=== PATIENT | male | born 1940 | race Caucasian/White ===

== ENCOUNTER 2024-05-06 06:01 | Outpatient (REF) | payer MEDICARE, SELFPAY ==
[2024-05-06 06:08] LABS: MANUAL DIFF FLAG NO
[2024-05-06 06:41] LABS: Basophils Percent Auto 0.5 % (0-2); Eosinophils Absolute Auto 0.2 X10*3/uL (0.0-0.4); Eosinophils Percent Auto 4.7 % (0-4); Hematocrit 29.7 % (42.0-52.0); Hemoglobin 10.1 g/dl (14.0-18.0); Imm Gran Abs Auto 0.01 X10*3/uL (0.00-0.03); Imm Gran Pct Auto 0.2 % (0.0-0.4); Lymphocytes Absolute Auto 1.2 X10*3/uL (1.2-4.9); Lymphocytes Percent Auto 29.4 % (20-40); Mean Corpuscular Hemoglobin 32.3 pg (27.0-33.0); Mean Corpuscular Volume 94.9 fL (80.0-98.0); Mean Platelet Volume 10.1 fL (9.4-12.4); Monocytes Absolute Auto 0.4 X10*3/uL (0.1-1.2); Monocytes Percent Auto 9.2 % (2-11); Neutrophils Absolute Auto 2.4 x10*3/uL (2.0-8.3); Platelet Count 138 X10*3/uL (160-400); Red Blood Count 3.13 X10*6/uL (4.60-5.80); Red Cell Distribution Width 13.1 % (11.0-16.0); White Blood Count 4.2 X10*3/uL (4.8-10.8)
[2024-05-06 07:00] LABS: Alanine Aminotransferase 15 U/L (0-40); Albumin Level 3.7 g/dL (3.5-5.0); Alkaline Phosphatase 68 U/L (39-117); Anion Gap 11 (12-20); Aspartate Amino Transferase 25 U/L (5-37); Bilirubin Total 0.4 mg/dL (0.0-1.0); Blood Urea Nitrogen 14 mg/dL (9-16); Calcium 9.2 mg/dL (8.4-10.2); Carbon Dioxide 24 mmol/L (22-29); Chloride 107 mmol/L (96-108); Estimated Glomerular Filt Rate > 60; Glucose Fasting 101 mg/dL (60-99); Sodium 138 mmol/L (135-145); Total Protein 6.3 g/dL (6.5-8.0)
[2024-05-06 07:18] LABS: Prostate Specific Antigen 0.24 ng/mL (<0.05-4.0)
[2024-05-06 07:21] LABS: Thyroid Stimulating Hormone 1.25 uIU/mL (0.32-4.0); Vitamin D 25-OH Total 50.8 ng/mL (>30)
[2024-05-09 16:17] LABS: TS Negative Control Passed; TS Panel A 0; TS Panel B 0; TS Positive Control Passed; TSpotTB Negative (Negative)
== END 2024-05-06 06:02 | disposition home or self-care (01) ==
LOC: HO.HSH2N 06:01
PROVIDERS: Visit Provider Internal Medicine Interventional Cardiology
DX: I10 Essential (primary) hypertension (principal); C61 Malignant neoplasm of prostate; F03.90 Unspecified dementia, unspecified severity, without behavioral disturbance, psychotic disturbance, mood disturbance, and anxiety; E55.9 Vitamin D deficiency, unspecified; Z12.5 Encounter for screening for malignant neoplasm of prostate
CPT/HCPCS: 36415; 80053; 82306; 84153; 84443; 85025; 86481

== ENCOUNTER 2024-05-07 06:39 | Outpatient (REF) | payer MEDICARE, SELFPAY ==
[2024-05-07 06:57] LABS: Immature Retic Fraction 5.1 % (2.3-13.4); Reticulocytes Absolute 0.033 X10*6/uL (0.026-0.095)
[2024-05-07 07:15] LABS: Iron 56 mcg/dL (45-160); Percent Iron Saturation 24 % (15-50); Total Iron Binding Capacity 234 mcg/dL (228-428); Unsaturated Iron Binding 178 ug/dL
[2024-05-07 07:58] LABS: Folate 12.4 ng/mL (> or = 4.0); Vitamin B12 300 pg/mL (200-900)
== END 2024-05-07 06:40 | disposition home or self-care (01) ==
LOC: HO.HSH2N 06:39
PROVIDERS: Visit Provider Internal Medicine Interventional Cardiology
DX: D64.9 Anemia, unspecified (principal)
CPT/HCPCS: 36415; 82607; 82746; 83540; 85045

== ENCOUNTER 2024-05-12 15:17 | Outpatient (REF) | payer MEDICARE, SELFPAY ==
[2024-05-12 15:25] LABS: OBS Int Ctl Valid YES; OBS1 NEGATIVE (NEGATIVE)
== END 2024-05-12 15:18 | disposition home or self-care (01) ==
LOC: HO.HSH2N 15:17
PROVIDERS: Visit Provider Internal Medicine Interventional Cardiology
DX: D64.9 Anemia, unspecified (principal)
CPT/HCPCS: 82272

== ENCOUNTER 2024-05-15 14:17 | Outpatient (REF) | payer MEDICARE, SELFPAY ==
[2024-05-15 14:27] LABS: OBS Int Ctl Valid YES; OBS1 NEGATIVE (NEGATIVE)
== END 2024-05-15 14:18 | disposition home or self-care (01) ==
LOC: HO.HSH2N 14:17
PROVIDERS: Visit Provider Internal Medicine Interventional Cardiology
DX: D64.9 Anemia, unspecified (principal)
CPT/HCPCS: 82272

== ENCOUNTER 2024-06-10 08:20 | Outpatient (REF) | payer MEDICARE, SELFPAY ==
[2024-06-10 08:27] LABS: OBS Int Ctl Valid YES; OBS1 NEGATIVE (NEGATIVE)
--- OUTSIDE RECORDS SUMMARY | 2024-06-10 08:46 | XMS_ITS | Clinical Summary ---
Author Organization [employer] Address [address] [facility] 7 [place] [address] Care Team Providers Care Animal Laboratory Technician Name Role Phone Unavailable Primary Care Provider Unavailabl e Social History Tobacco Use Types Packs/Day Years Used Date Smoking Tobacco: Never Assessed Sex and Gender Information Value Date Recorded Sex Assigned at Male 05/18/2024 11:39 AM EST Legal Sex Male 11:38 AM EST Gender Identity Male 05/18/2024 11:39 AM EST Sexual Orientation Straight 05/18/2024 11 :39 AM EST Plan of Treatment Upcoming Encounters Date Type Department Care Team ([facility] st Contact Info) Description 07/07/2024 11:00 AM EDT Office Visit [facility] [address] [place] [address] Caio Mayen, DMD [address] [place] [address] Health Maintenance Due Date Last Done Comments Depression Screening 1938 Lipid Panel 1938 SDOH Screening 1938 Alcohol/Substance Use Screening 1950 Tobacco Screening 1950 DTaP/Tdap/Td Vaccines (1 - Tdap) 1957 Pneumococcal Vaccine: 50+ Ye ars (1 of 1 - PCV) 1988 Zoster Vaccines (1 of 2) 1988 RSV Patients and Pa tients Aged 60 years or older (1 - 1-dose 75+ series) 2013 COVID-19 Vaccine ( - 2023-2 5 season) 2023 Influenza Vaccine (#1) 2023 HIB Vaccines Aged Out No longer eligi ble based on patient's age to complete this topic HPV Vaccines Aged Out No longer eligi ble based on patient's age to complete this topic Hepatitis A Vaccines Aged Out No long er eligible based on patient's age to complete this topic Hepatitis B Vaccines Aged Out No long er eligible based on patient's age to complete this topic IPV Vaccines Aged Out No longer eligi ble based on patient's age to complete this topic Meningococcal Vaccine Aged Out No aj elliott eligible based on patient's age to complete this topic RSV under 20 months Aged Out No longe r eligible based on patient's age to complete this topic Rotavirus Vaccines Aged Out No longer eligible based on patient's age to complete this topic
== END 2024-06-10 08:21 | disposition home or self-care (01) ==
LOC: HO.HSH2N 08:20
PROVIDERS: Visit Provider Internal Medicine Interventional Cardiology
DX: D64.9 Anemia, unspecified (principal)
CPT/HCPCS: 82272

== ENCOUNTER 2024-07-12 07:42 | Outpatient (REF) | payer MEDICARE, SELFPAY ==
[2024-07-12 07:45] LABS: MANUAL DIFF FLAG NO
--- OUTSIDE RECORDS SUMMARY | 2024-07-12 07:46 | XMS_ITS | Clinical Summary ---
Author Organization [employer] Address [address] [place] [address] [place] [address] Care Team Providers Care Honey Liquefier Name Role Phone Unavailable Primary Care Provider Unavailabl e Allergies No known active allergies Medications traZODone (Desyrel) 50 MG tablet 50 mg. 04/02/2024 Active pantoprazole (ProtoNix) 40 MG EC tablet 40 mg. 04/02/2024 Active erythromycin (Romycin) 5 MG/GM ophthalmic ointment 02/09/2024 Active escitalopram (Lexapro) 20 MG tablet 20 mg. 04/02/2024 Active amLODIPine (Norvasc) 5 MG tablet 5 mg. 04/02/2024 Active tamsulosin (Flomax) 0.4 MG 24 hr capsule 0.4 mg. 04/02/2024 Activ e Eliquis 5 MG tablet 5 mg. 04/02/2024 Active aspirin 81 MG EC tablet Take 81 mg by mouth Once per day. Active senna-docusate sodium (Senokot-S) 8.6-50 MG tablet Take 1 tablet by mouth Once per day. Active lactulose (Chronulac) 10 GM/15ML solution Take 20 g by mouth 3 times daily. Active Active Problems No known active problems Encounters Date Type Department Care Team Description 07/07/2024 8:00 AM EDT Office Visit [facility] [address] [place] [address] Caio Mayen DMD from Last 3 Months Social History Tobacco Use Types Packs/Day Years Used Date Smoking Tobacco: Unknown Tobacco Cessation:Counseling Given: Not Answered Alcohol Use Standard Drinks/Week Comments Defer 0 (1 standard drink = 0.6 oz pur e alcohol) Sex and Gender Information Value Date Recorded Sex Assigned at Male 05/18/2024 11:39 AM EST Legal Sex Male 11:38 AM EST Gender Identity Male 05/18/2024 11:39 AM EST Sexual Orientation Straight 05/18/2024 11 :39 AM EST Plan of Treatment Upcoming Encounters Date Type Department Care Team (Late st Contact Info) Description 08/18/2024 10:00 AM EDT Office Visit [facility] [address] [place], [place] [id number] Shavon Harley [address] [place] [address] Health Maintenance Due Date Last Done Comments Dental Prophylaxis 1938 Depression Screening 1938 Lipid Panel 1938 SDOH Screening 1938 Alcohol/Substance Use Screening 1950 DTaP/Tdap/Td Vaccines (1 - Tdap) 1957 Pneumococcal Vaccine: 50+ Ye ars (1 of 1 - PCV) 1988 Zoster Vaccines (1 of 2) 1988 RSV Patients and Pa tients Aged 60 years or older (1 - 1-dose 75+ series) 2013 COVID-19 Vaccine ( - 2023-2 5 season) 2023 Influenza Vaccine (#1) 2023 Dental Oral Exam 01/07/2025 07/07/2024 Tobacco Screening 07/07/2025 07/07/2024 Dental X-Ray: Bitewings 07/08/2025 07/07/2024 Dental X-Ray: Full Mouth 07/09/2027 07/07/2024 HIB Vaccines Aged Out No longer eligi [...] on patient's age to complete this topic Procedures Procedure Name Priority Date/Time Associated Diagnosis Comments INTRAORAL - COMPLETE SERIES OF RADIOGRAPHIC IMAGES Routine 07/07/2024 8:00 AM EDT COMPREHENSIVE ORAL EVALUATION - NEW OR ESTABLISHED PATIENT Routine 07/07/2024 8:00 AM EDT 29 B COMPOSITE FILLING Routine 12:00 AM EDT from Last 3 Months
--- OUTSIDE RECORDS SUMMARY | 2024-07-12 07:46 | XMS_ITS | Encounter Summary ---
Author Organization [employer] Address [address] [facility] 7 [place] [address] Care Team Providers Care Animal Geneticist Name Role Phone Unavailable Primary Care Provider Unavailabl e Reason for Visit * Reason Comments Dental Exam X-ray and dental exa m Encounter Details Date Type Department Care Team (Late st Contact Info) Description 07/07/2024 8:00 AM EDT Office Visit [facility] [address] [place] [address] Caio Mayen DMD [address] [place] [address] Social History Tobacco Use Types Packs/Day Years [...] Orientation Straight 05/18/2024 11 :39 AM EST documented as of this encounter Progress Notes * Caio Mayen DMD - 07/07/2024 8:00 AM EDT C/C: dental exam I.O.E: gen periodontal bone loss, gen heavy plaque and calculus accumulation, erythematous and edematous gingiva E.O.E: wnl OCS: wnl Head and neck: wnl Radiographic: gen moderate to advanced periodontal bone loss, gen calculus accumulation, severe root carious tooth#18 Dx: gen 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 Medical clearance form is being given to pt's PCP prior to exo Magnus documented in this encounter Plan of Treatment Upcoming Encounters Date Type Department Care Team (Late st Contact Info) Description 08/18/2024 10:00 AM EDT Office Visit [facility] [address] [place] [address] Shavon Harley [address] [facility] [place] [address] Scheduled Orders Name Type Priority Associated Diagnoses Orde r Schedule 18 18 EXTRACTION, ERUPTED TOOTH OR EXPOSED ROOT (ELEVATION/FORCEPS REMOVAL) Dental Routine [address] arting 07/07/2024 PROPHYLAXIS - ADULT Dental Routine 1 Occ urrences starting 07/07/2024 COMPREHENSIVE PERIODONTAL EVALUATION - NEW OR ESTABLISHED PATIENT Dental Routine 1 Occurrence s starting 07/07/2024 documented as of this encounter Procedures Procedure Name Priority Date/Time Associated Diagnosis Comments INTRAORAL - COMPLETE SERIES OF RADIOGRAPHIC IMAGES Routine 07/07/2024 8:00 AM EDT COMPREHENSIVE ORAL EVALUATION - NEW OR ESTABLISHED PATIENT Routine 07/07/2024 8:00 AM EDT 29 B COMPOSITE FILLING Routine 12:00 AM EDT documented in this encounter Visit Diagnoses Not on filedocumented in this encounter
[2024-07-12 07:55] LABS: Basophils Percent Auto 0.6 % (0-2); Eosinophils Absolute Auto 0.2 X10*3/uL (0.0-0.4); Eosinophils Percent Auto 4.6 % (0-4); Hematocrit 32.8 % (42.0-52.0); Imm Gran Abs Auto 0.01 X10*3/uL (0.00-0.03); Imm Gran Pct Auto 0.2 % (0.0-0.4); Lymphocytes Absolute Auto 1.5 X10*3/uL (1.2-4.9); Lymphocytes Percent Auto 31.4 % (20-40); Mean Corpuscular HGB Conc 33.5 g/dl (31.0-36.0); Mean Corpuscular Volume 95.3 fL (80.0-98.0); Mean Platelet Volume 9.9 fL (9.4-12.4); Monocytes Absolute Auto 0.5 X10*3/uL (0.1-1.2); Monocytes Percent Auto 10.5 % (2-11); Neutrophils Absolute Auto 2.5 x10*3/uL (2.0-8.3); Neutrophils Percent Auto 52.7 % (45-73); Platelet Count 177 X10*3/uL (160-400); Red Blood Count 3.44 X10*6/uL (4.60-5.80); Red Cell Distribution Width 12.6 % (11.0-16.0); White Blood Count 4.8 X10*3/uL (4.8-10.8)
== END 2024-07-12 07:43 | disposition home or self-care (01) ==
LOC: HO.HSH2N 07:42
PROVIDERS: Visit Provider Internal Medicine Interventional Cardiology
DX: D64.9 Anemia, unspecified (principal)
CPT/HCPCS: 36415; 85025

== ENCOUNTER 2024-11-04 06:23 | Outpatient (REF) | payer MEDICARE, SELFPAY ==
[2024-11-04 06:26] LABS: MANUAL DIFF FLAG NO
[2024-11-04 06:35] LABS: Hematocrit 34.1 % (42.0-52.0); Hemoglobin 12.2 g/dl (14.0-18.0); Imm Gran Abs Auto 0.01 X10*3/uL (0.00-0.03); Imm Gran Pct Auto 0.2 % (0.0-0.4); Lymphocytes Absolute Auto 1.5 X10*3/uL (1.2-4.9); Mean Corpuscular HGB Conc 35.8 g/dl (31.0-36.0); Mean Corpuscular Hemoglobin 32.8 pg (27.0-33.0); Mean Corpuscular Volume 91.7 fL (80.0-98.0); NRBC Abs Auto 0.000 X10*3/uL (0.0-0.012); NRBC Pct Auto 0.0 /100WBC (0.0-0.2); Platelet Count 159 X10*3/uL (160-400); Red Blood Count 3.72 X10*6/uL (4.60-5.80); White Blood Count 4.2 X10*3/uL (4.8-10.8)
[2024-11-04 07:00] LABS: Anion Gap 11 (12-20); Blood Urea Nitrogen 15 mg/dL (9-16); Calcium 8.8 mg/dL (8.4-10.2); Carbon Dioxide 26 mmol/L (22-29); Chloride 108 mmol/L (96-108); Estimated Glomerular Filt Rate > 60; Potassium 4.2 mmol/L (3.3-5.1); Sodium 141 mmol/L (135-145)
[2024-11-04 07:21] LABS: Prostate Specific Antigen 0.26 ng/mL (<0.05-4.0)
[2024-11-04 08:23] LABS: Appearance Urine Clear; Glucose Urine UA Negative (Negative); PH 7.0 (5.0-9.0); Specific Gravity - Urine 1.015 (1.005-1.025)
== END 2024-11-04 06:24 | disposition home or self-care (01) ==
LOC: HO.HSH2N 06:23
PROVIDERS: Visit Provider Internal Medicine Interventional Cardiology
DX: R41.82 Altered mental status, unspecified (principal); D64.9 Anemia, unspecified; Z85.46 Personal history of malignant neoplasm of prostate; Z12.5 Encounter for screening for malignant neoplasm of prostate
CPT/HCPCS: 36415; 80048; 81003; 84153; 85025

== ENCOUNTER 2024-11-22 07:07 | Outpatient (REF) | payer MEDICARE, SELFPAY ==
[2024-11-22 08:41] LABS: Ferritin 701 ng/mL (20-250)
== END 2024-11-22 07:08 | disposition home or self-care (01) ==
LOC: HO.HSH2N 07:07
PROVIDERS: Visit Provider Internal Medicine Interventional Cardiology
DX: D64.9 Anemia, unspecified (principal)
CPT/HCPCS: 36415; 82728

== ENCOUNTER 2024-12-20 14:45 | Outpatient (REF) | payer MEDICARE, SELFPAY ==
[2024-12-20 14:57] LABS: Appearance Urine Clear; Glucose Urine UA Negative (Negative); PH 6.5 (5.0-9.0); Specific Gravity - Urine 1.010 (1.005-1.025)
== END 2024-12-20 14:46 | disposition home or self-care (01) ==
LOC: HO.HSH2N 14:45
PROVIDERS: Visit Provider Internal Medicine Interventional Cardiology
DX: R41.82 Altered mental status, unspecified (principal)
CPT/HCPCS: 81003

== ENCOUNTER 2024-12-21 06:45 | Outpatient (REF) | payer MEDICARE, SELFPAY | END 2024-12-21 06:46 | disposition home or self-care (01) | LOC: HO.HSH2N 06:45 | PROVIDERS: Visit Provider Internal Medicine Interventional Cardiology | DX: R41.82 Altered mental status, unspecified (principal) | CPT/HCPCS: 36415; 80048; 81003; 85025 ==

== ENCOUNTER 2025-01-17 06:12 | Outpatient (REF) | payer MEDICARE, SELFPAY ==
--- OUTSIDE RECORDS SUMMARY | 2025-01-17 06:14 | XMS_ITS | Clinical Summary ---
Author Organization [employer] Address [address] [facility] 7 [place] [address] Care Team Providers Care Plastic Extrusion Operator Name Role Phone Unavailable Primary Care Provider [...] g by mouth 3 times daily. Active OLANZapine (ZyPREXA) 2.5 MG tablet at bedtime. Active cholecalciferol (Vitamin D-3) 25 MCG (1000 UT) capsule Take 25 mcg by mouth Once per day. Active polyethylene glycol, PEG, 3350 (Miralax) 17 g packet Take 17 g by mouth Once per day. Active Melatonin 3-10 MG tablet Take 3 mg by mouth at bedtime. Active Active Problems No known active problems Encounters Date Type Department Care Team Description 12/15/2024 9:45 AM EDT Office Visit [facility] [address] [place], [place] [phone] Kathy Duong Periapical abscess without sinus (Primary Dx); Dental calculus; Dental plaque from Last 3 Months Social History Tobacco [...] 11 :39 AM EST Plan of Treatment Health Maintenance Due Date Last Done Comments Depression Screening 1938 Lipid Panel 1938 SDOH Screening 1938 Alcohol/Substance Use Screening 1950 DTaP/Tdap/Td Vaccines (1 - Tdap) 1957 Pneumococcal Vaccine: 50+ Years (1 of 1 - PCV) 1988 Zoster Vaccines (1 of 2) 1988 RSV Patients and Patients Aged 60 years or older (1 - 1-dose 75+ series) 2013 COVID-19 Vaccine ( - 2023-2 5 season) 2024 Influenza Vaccine (#1) 2024 Dental Oral Exam 04/02/2025 09/29/2024, 07/07/2024 Dental Prophylaxis 06/15/2025 12/15/2024, 08/03/2024 Dental X-Ray: Bitewings 07/08/2025 07/07/2024 Tobacco Screening 12/15/2025 12/15/2024 Dental X-Ray: Full Mouth 07/09/2027 07/07/2024 HIB [...] patient's age to complete this topic Meningococcal B Vaccine Aged Out No l onger eligible based on patient's age to complete [...] Procedure Name Priority Date/Time Associated Diagnosis Comments ORAL HYGIENE INSTRUCTIONS Routine 12/15/2024 9:45 AM EDT Periapical abscess without sinus Dental calculus Dental plaque PROPHYLAXIS - ADULT Routine 12/15/2024 9 :45 AM EDT Periapical abscess without sinus Dental calculus Dental plaque TOPICAL APPLICATION OF FLUORIDE VARNISH Routine 12/15/2024 9:45 AM EDT PERIODIC ORAL EVALUATION - ESTABLISHED PATIENT Routine 09/29/2024 1:45 PM EDT INTRAORAL - COMPLETE SERIES OF RADIOGRAPHIC IMAGES Routine 07/07/2024 8:00 AM EDT from Last 3 Months or Most Recently Relevant to Health Maintenance
[2025-01-17 06:58] LABS: Prostate Specific Antigen 0.28 ng/mL (<0.05-4.0)
== END 2025-01-17 06:13 | disposition home or self-care (01) ==
LOC: HO.HSH2N 06:12
PROVIDERS: Visit Provider Internal Medicine Interventional Cardiology
DX: E11.9 Type 2 diabetes mellitus without complications (principal); C61 Malignant neoplasm of prostate; Z12.5 Encounter for screening for malignant neoplasm of prostate
CPT/HCPCS: 36415; 83036; 84153

== ENCOUNTER 2025-03-03 06:14 | Outpatient (REF) | payer MEDICARE, SELFPAY ==
[2025-03-03 06:16] LABS: MANUAL DIFF FLAG NO
--- OUTSIDE RECORDS SUMMARY | 2025-03-03 06:17 | XMS_ITS | Clinical Summary ---
Author Organization [employer] Address [address] [facility] 7 [place] [address] Care Team Providers Care Carton Counter Feeder Name Role Phone Unavailable Primary Care Provider [...] Description 12/15/2024 9:45 AM EDT Office Visit [facility] [address] [place] [address] Kathy Duong Periapical abscess without sinus (Primary [...] 75+ series) 2013 COVID-19 Vaccine ( - 2024-2 6 season) 2024 Influenza Vaccine (#1) 2024 Dental [...]
[2025-03-03 06:42] LABS: Hematocrit 35.6 % (42.0-52.0); Hemoglobin 12.3 g/dl (14.0-18.0); Imm Gran Abs Auto 0.01 X10*3/uL (0.00-0.03); Imm Gran Pct Auto 0.2 % (0.0-0.4); Lymphocytes Absolute Auto 1.7 X10*3/uL (1.2-4.9); Mean Corpuscular HGB Conc 34.6 g/dl (31.0-36.0); Mean Corpuscular Hemoglobin 31.9 pg (27.0-33.0); Mean Corpuscular Volume 92.5 fL (80.0-98.0); NRBC Abs Auto 0.000 X10*3/uL (0.0-0.012); NRBC Pct Auto 0.0 /100WBC (0.0-0.2); Platelet Count 165 X10*3/uL (160-400); Red Blood Count 3.85 X10*6/uL (4.60-5.80); White Blood Count 5.4 X10*3/uL (4.8-10.8)
[2025-03-03 06:57] LABS: Alanine Aminotransferase 13 U/L (0-40); Albumin Level 4.1 g/dL (3.5-5.0); Alkaline Phosphatase 54 U/L (39-117); Anion Gap 10 (12-20); Aspartate Amino Transferase 26 U/L (5-37); Blood Urea Nitrogen 14 mg/dL (9-16); Calcium 9.2 mg/dL (8.4-10.2); Carbon Dioxide 25 mmol/L (22-29); Chloride 108 mmol/L (96-108); Estimated Glomerular Filt Rate > 60; Potassium 4.2 mmol/L (3.3-5.1); Sodium 139 mmol/L (135-145); Total Protein 6.5 g/dL (6.5-8.0)
[2025-03-03 07:12] LABS: Thyroid Stimulating Hormone 1.46 uIU/mL (0.32-4.0)
[2025-03-03 07:47] LABS: Appearance Urine Clear; Glucose Urine UA Negative (Negative); PH 7.0 (5.0-9.0); Specific Gravity - Urine 1.015 (1.005-1.025)
== END 2025-03-03 06:15 | disposition home or self-care (01) ==
LOC: HO.HSH2N 06:14
PROVIDERS: Visit Provider Internal Medicine Interventional Cardiology
DX: R41.82 Altered mental status, unspecified (principal)
CPT/HCPCS: 36415; 80053; 81003; 84443; 85025

== ENCOUNTER 2025-03-15 16:22 | Emergency (ER) | payer MEDICARE, SELFPAY ==
--- NOTE | 2025-03-15 | ECG_ITS ---
Test Reason : FALL Blood Pressure : */* mmHG Vent. Rate : 66 BPM Atrial Rate : * BPM P-R Int : * ms QRS Dur : 90 ms QT Int : 410 ms P-R-T Axes : * 15 29 degrees QTcB Int : 429 ms NSR with first degree AV block Nonspecific ST abnormality Abnormal ECG No previous ECGs available Referred By: Generic ED Physician Electronically Signed By: Sai German
--- NOTE | ~2025-03-15 | CT_ITS ---
CLINICAL HISTORY: head trauma CT Brain without contrast Comparison: None FINDINGS: Cortical sulci: There is diffuse prominence of the cortical sulci compatible with age-related atrophy. Ventricles: Normal for age Brain parenchyma: There is patchy lucency throughout the deep white matter indicating chronic microvascular leukomalacia. Extra axial spaces: Normal Posterior Fossa: Normal Extracranial soft tissues: Normal Additional abnormality: None IMPRESSION: Age-related atrophy with chronic microvascular leukomalacia. No hemorrhage, mass effect, or acute findings identified. This document has been electronically signed by: Trenton Rosales MD on 03/15/2025 18:45:11
--- NOTE | ~2025-03-15 | CT_ITS ---
CLINICAL HISTORY: head trauma CT cervical spine without contrast Comparison: None provided Findings: Vertebral alignment is within normal limits. Multilevel degenerative change. No acute fractures or dislocations. No acute findings on limited view of the intracranial contents. Atherosclerosis calcification of the carotid bulbs. No consolidation or effusion at the lung apices. IMPRESSION: No acute findings. This document has been electronically signed by: Trenton Rosales MD on 03/15/2025 18:45:14
[2025-03-15 16:36] VITALS: BP 151/65; BP 170/98; PULSE 60; PULSE 63; RESP 16; TEMP 36.7; O2SAT 95; BMI 26.2
--- NOTE | 2025-03-15 17:17 | ED_ITS ---
[facility] - General Adult General Chief complaint: Fall Stated complaint: unw fall, rt forehead bruise Time Seen by Provider: 03/15/25 16:57 Source: patient Mode of arrival: ambulatory Limitations: no limitations History of Present Illness ED Provider: Dr. Espinal [facility] narrative: 85-year-old male [facility]. Patient is reported on blood thinner. No loss of consciousness. Patient has bruising over the left forehead. Patient is unable to provide any meaningful history at this time. Patient is actively trying to get out of bed. He does have history of Alzheimer. Related Data Allergies Allergy/AdvReac Type Severity Reaction Status Date / Time No Known Allergies Allergy Verified 03/15/25 16:42 Review of Systems 2 Review of Systems: Pertinent review of systems as mentioned in HPI. All other system otherwise negative. [facility] Past Medical History [facility] Narrative: Medical history as mentioned in [facility] Social History Social History Smoked in Last 30 Days: No Use of substances other than those prescribed or required for medical reasons: No Advance Directives: No Advance Directives Information Provided: No Do you have a plan to hurt others: No Plan Physical Exam ED Exam Exam: General: Pleasant, no distress, appears confused Head: Normacephalic, presenting with a forehead identified on exam no obvious laceration ENT: oral mucosa moist, neck supple, no tracheal deviation, C-collar in place Cardiovascular: regular rate, regular rhythm, no murmurs, rubbing, gallops Respiratory: CTAB, no wheeze, rales, rhonchi Gastrointestinal: Soft, non distended, non tender, non guarding Extremities: Moving all 4 extremity no obvious deformity Neurological: Awake and alert, appears confused Skin: Warm and dry Psychiatric: Appears confused Vital Signs: Vital Signs - 24 hr 03/15/25 16:36 03/15/25 20:31 03/15/25 20:45 Temperature 98.1 F Pulse Rate 63 55 51 Respiratory Rate 16 16 16 Blood Pressure 151/65 H Pulse Oximetry 95 92 92 Oxygen Delivery Method Room Air Room Air Room Air 03/15/25 21:00 03/15/25 21:15 Temperature Pulse Rate 50 50 Respiratory Rate 16 16 Blood Pressure 152/71 H 147/75 H Pulse Oximetry 94 96 Oxygen Delivery Method Room Air Room Air BMI result Body Mass Index 26.2 Medications Administered Discontinued Medications Generic Name Dose Route Start Last Admin Trade Name Freq PRN Reason Stop Dose Admin Haloperidol Lactate 5 mg 03/15/25 17:13 03/15/25 17:29 Haloperidol Lactate 5 Mg/Ml Vial IM 03/15/25 17:14 5 mg ONCE ONE Administration Sodium Chloride 1,000 mls @ 999 mls/hr 03/15/25 17:30 03/15/25 18:58 Ns IV 03/15/25 18:30 Infused .Q1H1M MINDI Infusion Midazolam HCl 4 mg 03/15/25 17:13 03/15/25 17:29 Midazolam Hcl 2 Mg/2 Ml Vial IM 03/15/25 17:14 4 mg ONCE ONE Administration Midazolam HCl 4 mg 03/15/25 20:05 03/15/25 20:12 Midazolam Hcl 2 Mg/2 Ml Vial IM 03/15/25 20:06 4 mg ONCE ONE Administration Medical Decision Making Medical Decision Making MDM Narrative: 85-year-old male history of Alzheimer disease presenting to ER today for evaluation of a [facility]itnessed fall [facility] head and CT C-spine will be placed in the patient. IM Haldol and IM Versed will be given to the patient as the patient is actively fighting staff and trying to get out stretcher. Basic lab work will be obtained UA will be obtained as well. CT head and CT C-spine is negative. We will obtain a UA for the patient. Contacted [facility] staff. The patient at baseline has pretty advanced dementia. He is currently after dementia unit. Patient will be signed out to oncoming provider. 12:15 AM 03/16/2025 (Dr. Marcella Slade, D.O.) patient is mentating back at his baseline after being medicated for agitation. Plan for [facility]. Differential Diagnosis Differential Diagnoses: The differential diagnosis associated with the presentation includes Encephalopathy, intracranial bleed, C-spine injury Lab Data MDM Lab Attestation statement: I reviewed the patient's lab results. 03/15/25 17:32 03/15/25 17:32 Labs: Lab Results 03/15/25 03/15/25 Range/Units 17:32 21:43 WBC 5.4 (4.8-10.8) X10*3/uL RBC 3.95 L (4.60-5.80) X10*6/uL Hgb 12.6 L (14.0-18.0) g/dl Hct 36.7 L (42.0-52.0) % MCV 92.9 (80.0-98.0) fL MCH 31.9 (27.0-33.0) pg MCHC 34.3 (31.0-36.0) g/dl RDW 12.2 (11.0-16.0) % Plt Count 170 (160-400) X10*3/uL MPV 9.8 (9.4-12.4) fL Immature Gran % (Auto) 0.2 (0.0-0.4) % Neut % (Auto) 61.8 (45-73) % Lymph % (Auto) 25.0 (20-40) % [place] % (Auto) 10.2 (2-11) % Eos % (Auto) 2.2 (0-4) % Baso % (Auto) 0.6 (0-2) % Lymph # (Auto) 1.4 (1.2-4.9) X10*3/uL [place] # (Auto) 0.6 (0.1-1.2) X10*3/uL Eos # (Auto) 0.1 (0.0-0.4) X10*3/uL Baso # (Auto) 0.0 (0.0-0.2) X10*3/uL Abs Immat Gran (auto) 0.01 (0.00-0.03) X10*3/uL Absolute Neuts (auto) 3.3 (2.0-8.3) x10*3/uL Absolute Nucleated RBC 0.000 (0.0-0.012) X10*3/uL Nucleated RBC % (auto) 0.0 (0.0-0.2) /100WBC PT 13.7 H (11.2-13.5) SEC INR 1.1 (0.9-1.1) Sodium 141 (135-145) mmol/L Potassium 3.8 (3.3-5.1) mmol/L Chloride 107 (96-108) mmol/L Carbon Dioxide 25 (22-29) mmol/L Anion Gap 13 (12-20) BUN 18 H (9-16) mg/dL Creatinine 0.93 (0.5-1.4) mg/dL Estim Creat Clear Calc 55.9 Estimated GFR > 60 Random Glucose 109 (60-115) mg/dL Calcium 9.3 (8.4-10.2) mg/dL Total Bilirubin 0.4 (0.0-1.0) mg/dL AST 31 (5-37) U/L ALT 14 (0-40) U/L Alkaline Phosphatase 60 (39-117) U/L Total Protein 6.9 (6.5-8.0) g/dL Albumin 4.4 (3.5-5.0) g/dL Urine Color Yellow Urine Appearance Cloudy Urine pH 7.5 (5.0-9.0) Ur Specific [place] 1.015 (1.005-1.025) Urine Protein Negative (Neg-Trace) mg/dL Urine Glucose (UA) Negative (Negative) mg/dL Urine Ketones Negative (Negative) mg/dL Urine Blood Negative (Negative) Urine Nitrite Negative (Negative) Ur Leukocyte Esterase Negative (Negative) Independent Interpretation I performed an independent interpretation of an: CT Scan Radiology Impression Discussion of test interpretation with radiology: I have reviewed the radiologist's reading. Chronic Conditions Patient?s care impacted by: Other (Dementia) Social Determinants Patient?s care significantly limited by Social Determinants of Health including: Other Social Determinant of Health Discharge Plan Discharge Clinical Impression: Dementia with agitation Fall Qualifiers: Encounter type: initial encounter Qualified Code(s): W19.XXXA - Unspecified fall, initial encounter Patient Disposition: Xfer LTC Transfer Details: [facility] Instructions: Fall Prevention for Older Adults (ED) Print Language: Italian
[2025-03-15 17:36] LABS: MANUAL DIFF FLAG NO
[2025-03-15 17:48] LABS: INTERNATIONAL NORM RATIO 1.1 (0.9-1.1); Prothrombin Time 13.7 SEC (11.2-13.5)
[2025-03-15 17:59] LABS: Hematocrit 36.7 % (42.0-52.0); Hemoglobin 12.6 g/dl (14.0-18.0); Imm Gran Abs Auto 0.01 X10*3/uL (0.00-0.03); Imm Gran Pct Auto 0.2 % (0.0-0.4); Lymphocytes Absolute Auto 1.4 X10*3/uL (1.2-4.9); Mean Corpuscular HGB Conc 34.3 g/dl (31.0-36.0); Mean Corpuscular Hemoglobin 31.9 pg (27.0-33.0); Mean Corpuscular Volume 92.9 fL (80.0-98.0); NRBC Abs Auto 0.000 X10*3/uL (0.0-0.012); NRBC Pct Auto 0.0 /100WBC (0.0-0.2); Platelet Count 170 X10*3/uL (160-400); Red Blood Count 3.95 X10*6/uL (4.60-5.80); White Blood Count 5.4 X10*3/uL (4.8-10.8)
[2025-03-15 18:01] LABS: Alanine Aminotransferase 14 U/L (0-40); Albumin Level 4.4 g/dL (3.5-5.0); Alkaline Phosphatase 60 U/L (39-117); Anion Gap 13 (12-20); Aspartate Amino Transferase 31 U/L (5-37); Blood Urea Nitrogen 18 mg/dL (9-16); Calcium 9.3 mg/dL (8.4-10.2); Carbon Dioxide 25 mmol/L (22-29); Chloride 107 mmol/L (96-108); Creatinine Clr Calc Pharmacy 55.9; Estimated Glomerular Filt Rate > 60; Potassium 3.8 mmol/L (3.3-5.1); Sodium 141 mmol/L (135-145); Total Protein 6.9 g/dL (6.5-8.0)
--- NOTE | 2025-03-15 19:26 | MHC.EDTECH ---
Patient inc therefore patient changed
--- NOTE | 2025-03-15 20:09 | PC.NURSE ---
pt awake, incont of urine. assist with cleaning/bed change. fighting staff, unable to obtain straight cath d/t aggression. trying to get out of bed. MD aware. IM medication ordered
--- NOTE | 2025-03-15 20:11 | PC.NURSE ---
bladder scan 261
--- OUTSIDE RECORDS SUMMARY | 2025-03-15 20:23 | XMS_ITS | Clinical Summary ---
Author Organization [email or web address] Address [address] [facility] 7 [place] [address] Care Team Providers Care Precision Dancer Name Role Phone Unavailable Primary Care Provider [...] Description 12/15/2024 9:45 AM EDT Office Visit [facility] [address] [place] [address] Kathy Duong Periapical abscess without [...]
[2025-03-15 20:31] VITALS: PULSE 55; RESP 16; O2SAT 92
[2025-03-15 20:45] VITALS: PULSE 51; RESP 16; O2SAT 92
[2025-03-15 21:00] VITALS: BP 152/71; PULSE 50; RESP 16; O2SAT 94
[2025-03-15 21:15] VITALS: BP 147/75; PULSE 50; RESP 16; O2SAT 96
[2025-03-15 21:50] LABS: Appearance Urine Cloudy; Glucose Urine UA Negative (Negative); PH 7.5 (5.0-9.0); Specific Gravity - Urine 1.015 (1.005-1.025)
[2025-03-16 00:35] VITALS: BP 171/77; PULSE 59; RESP 16; TEMP 36.6; O2SAT 94
--- NOTE | 2025-03-16 01:08 | PC.NURSE ---
report given to facility. EMS eta 15 mins
[2025-03-16 01:29] VITALS: BP 171/77; PULSE 59; RESP 16; TEMP 36.6; O2SAT 94
== END 2025-03-16 01:30 ==
PROVIDERS: Student in an Organized Health Care Education/Training Program; Emergency Provider Emergency Medicine; PCP Internal Medicine Interventional Cardiology
DX: F03.911 Unspecified dementia, unspecified severity, with agitation (principal); S09.90XA Unspecified injury of head, initial encounter; W06.XXXA Fall from bed, initial encounter; Y93.9 Activity, unspecified; Y92.122 Bedroom in nursing home as the place of occurrence of the external cause; I44.0 Atrioventricular block, first degree; Z79.01 Long term (current) use of anticoagulants
CPT/HCPCS: 36415; 51701; 70450; 72125; 80053; 81003; 85025; 85610; 93005; 96360; 96372; 99285; J1630; J2250

== ENCOUNTER → 2025-03-15 16:41 | Outpatient (BNV) | payer MEDICARE, SELFPAY | PROVIDERS: Emergency Provider Emergency Medicine; PCP Internal Medicine Interventional Cardiology; Visit Provider Internal Medicine Cardiovascular Disease | DX: I44.0 Atrioventricular block, first degree (principal) | CPT/HCPCS: 93010 ==

== ENCOUNTER → 2025-03-15 17:14 | Outpatient (BNV) | payer MEDICARE, SELFPAY | PROVIDERS: Emergency Provider Student in an Organized Health Care Education/Training Program; PCP Internal Medicine Interventional Cardiology; Visit Provider Nuclear Medicine | DX: S09.90XA Unspecified injury of head, initial encounter (principal); I67.82 Cerebral ischemia | CPT/HCPCS: 70450; 72125 ==